=== PATIENT | male | born 1990 | race Caucasian/White ===

== ENCOUNTER 2020-12-21 13:18 | Observation (INO) | payer OTHER ==
[~2020-12-21] VITALS: Ht 177.8 cm; Wt 68.2 kg
[2020-12-21 13:31] LABS: BASO % 0.5 % (0.0-2.0); EOS # 0.1 (0.0-0.7); EOS % 1.9 % (0-4.0); GRAN # 3.5 (1.4-6.5); GRAN % 56.6 % (42.2-75.2); HEMOGLOBIN 12.1 g/dl (13.5-18.0); LYMPH % 31.7 % (20.0-51.0); MEAN CELL VOLUME 83 fl (80.0-100.0); MEAN CORPUSCULAR HEMOGLOBIN 29 pg (27.0-31.0); MEAN CORPUSCULAR HGB CONC 35 g/dl (33.0-37.0); MEAN PLATELET VOLUME 9.3 fl (7.4-10.4); MONO # 0.6 (0.1-0.6); PLATELET COUNT 206 K/mm3 (130-400); RED BLOOD COUNT 4.11 M/mm3 (4.20-5.60); REDCELL DISTRIBUTION WIDTH-CV 14.3 % (11.5-14.5)
[2020-12-21 13:32] LABS: HEMATOCRIT 34.2 % (42.0-52.0)
[2020-12-21 13:41] LABS: ALBUMIN 3.8 gm/dL (3.5-5.0); BILIRUBIN,TOTAL 0.6 mg/dL (0.0-1.0); CALCIUM 8.9 mg/dL (8.4-10.2); CREATININE, serum 0.84 (0.66-1.25); TOTAL PROTEIN 6.8 gm/dL (6.4-8.2)
[2020-12-21 16:14] VITALS: BP 124/75; PULSE 86; TEMP 98.6
--- NOTE | 2020-12-21 17:36 | NUR ---
VITALS OBTAINED AND REVIEWED, ADMISSION COMPLETED, PT DENIES PAIN/DISCOMFORT, TOLERATING CLD, FLUIDS INFUSING, PT INDEPENDENT IN THE ROOM, NO OTHER NEEDS AT THIS TIME, CONSENT OBTAINED FOR EGD TOMORROW.
[2020-12-21 21:12] LABS: HEMATOCRIT 27.1 % (42.0-52.0); HEMOGLOBIN 9.6 g/dl (13.5-18.0)
[2020-12-21 21:19] LABS: INR 1.1 (0.8-3.0); PROTHROMBIN TIME 12.6 SECONDS (9.7-12.8)
[2020-12-21 21:38] VITALS: BP 125/71; PULSE 92
--- NOTE | 2020-12-21 22:17 | NUR ---
ALERT AND OX4. POC DISCUSSED. WILL BE NPO AT MIDNIGHT FOR EGD IN AM. NO C/O NAUSEA OR VOMITING. NO REPORTS OF DARK STOOLS TONIGHT. IV TO LEFT ARM NS AT 100ML. PM MEDS GIVEN. NEEDS MET.
[2020-12-22 02:29] VITALS: BP 105/65; PULSE 78; TEMP 98
--- NOTE | 2020-12-22 05:42 | NUR ---
NEEDS MET, RESTED THROUGH THE NIGHT WO INCIDENT. NPO SINCE MIDNIGHT. CONSENTED FOR EGD TODAY.
[2020-12-22 07:28] VITALS: BP 115/66; PULSE 81; TEMP 98.8
--- NOTE | 2020-12-22 07:30 | NUR ---
PT REPORTS HEADACHE 09/04, ASSESSMENT PERFORMED, MEDICATIONS GIVEN, NO OTHER NEEDS
[2020-12-22 07:55] LABS: MEAN CELL VOLUME 87 fl (80.0-100.0); MEAN CORPUSCULAR HGB CONC 35 g/dl (33.0-37.0); PLATELET COUNT 180 K/mm3 (130-400); RED BLOOD COUNT 2.92 M/mm3 (4.20-5.60); REDCELL DISTRIBUTION WIDTH-CV 14.5 % (11.5-14.5)
[2020-12-22 07:57] LABS: HEMATOCRIT 25.3 % (42.0-52.0); HEMOGLOBIN 8.8 g/dl (13.5-18.0); MEAN CORPUSCULAR HEMOGLOBIN 30 pg (27.0-31.0)
[2020-12-22 08:03] LABS: CALCIUM 8.1 mg/dL (8.4-10.2); CREATININE, serum 0.89 (0.66-1.25); POTASSIUM 4.2 mmol/L (3.4-5.0)
[2020-12-22 09:00] VITALS: BP 106/56; PULSE 85
[2020-12-22 09:15] VITALS: BP 93/41; PULSE 90
[2020-12-22 12:19] LABS: HEMATOCRIT 25.2 % (42.0-52.0); HEMOGLOBIN 8.9 g/dl (13.5-18.0)
[2020-12-22] MEDS ORDERED: PROTONIX 40MG T40 MG PO (12:36)
[2020-12-22 12:56] VITALS: BP 96/51; PULSE 87; TEMP 98.3
--- NOTE | 2020-12-22 13:30 | NUR ---
SW met with patient to complete intake. Patient states that he lives at home with Yanick [phone] and children in [place], [place] Patieht provides that he does not utilize any DME at this time and is independent with ADL's. Patient states that his PCP is at [facility] and he is unsure of the name, also pharmacy is at [facility] as well. Patient states that he does not have anyone appointed as his DPOA-HC and does not wish to appoint anyone at this time. Patient provides that his plan is to return to his home in [place] up discharge and has no current questions or concerns at this time. SW will continue to follow. Plan: Home in [place]
--- NOTE | 2020-12-22 13:51 | NUR ---
IV REMOVED, DISCHARGE EDUCATION PROVIDED, NO OTHER NEEDS AT THIS TIME.
== END 2020-12-22 13:53 | disposition home or self-care (01) ==
LOC: COL.ER 13:18 → MEDICAL 14:32
PROVIDERS: Emergency Medicine; Internal Medicine Gastroenterology; Physician Assistant; ADMIT Hospitalist
DX: K29.30 Chronic superficial gastritis without bleeding (principal); K29.80 Duodenitis without bleeding; K29.60 Other gastritis without bleeding; K92.2 Gastrointestinal hemorrhage, unspecified; J02.0 Streptococcal pharyngitis
CPT/HCPCS: C9113; G0378; J2704; J2765; J7030